=== PATIENT | male | born 1965 | race Caucasian/White ===

== ENCOUNTER 2020-09-23 10:46 | Day surgery (SDC) | payer OTHER ==
[2020-09-15 14:03] LABS: BASOPHILS # (AUTO) 0.1 X10'3 (0-0.2); BASOPHILS % (AUTO) 1.1 % (0-1); EOSINOPHILS # (AUTO) 0.1 X10'3 (0-0.9); EOSINOPHILS % (AUTO) 1.2 % (0-6); LYMPHOCYTES # (AUTO) 2.2 X10'3 (1.1-4.8); LYMPHOCYTES % (AUTO) 33.8 % (21-51); MEAN CORPUSCULAR HEMOGLOBIN 30.6 PG (27.0-31.0); MEAN CORPUSCULAR HGB CONC 34.3 g/dL (33.0-36.5); MEAN CORPUSCULAR VOLUME 89.3 FL (78-98); MEAN PLATELET VOLUME 7.9 FL (7.4-10.4); MONOCYTES # (AUTO) 0.7 X10'3 (0-0.9); MONOCYTES % (AUTO) 10.4 % (2-12); NEUTROPHILS # (AUTO) 3.5 X10'3 (1.8-7.7); NEUTROPHILS % (AUTO) 53.5 % (42-75); PRE OP HEMATOCRIT 46.9 % (42.0-52.0); PRE OP HEMOGLOBIN 16.1 g/dL (14.0-17.9); PRE OP PLATELET COUNT 317 X10'3 (140-440); RED BLOOD COUNT 5.26 X10'6 (4.70-6.10)
[2020-09-15 15:27] LABS: ALBUMIN 3.9 G/DL (3.4-5.0); ALBUMIN/GLOBULIN RATIO 1.1 (1.1-1.5); ALKALINE PHOSPHATASE 112 IU/L (46-116); BLOOD UREA NITROGEN 15 MG/DL (7-18); CALCIUM 9.1 MG/DL (8.5-10.1); CHLORIDE 106 MMOL/L (99-107); CREATININE 1.07 MG/DL (0.60-1.10); PRE OP ALT 55 U/L (30-65); PRE OP ANION GAP 10 (8-16); PRE OP AST 20 U/L (10-37); PRE OP BILIRUB, TOTAL 0.8 MG/DL (0.0-1.0); PRE OP GLUCOSE 95 MG/DL (70-104); PRE OP POTASSIUM 3.7 MMOL/L (3.4-5.1); PRE OP SODIUM 143 MMOL/L (135-145); TOTAL CARBON DIOXIDE 27.2 MMOL/L (24-32); TOTAL PROTEIN 7.5 G/DL (6.4-8.2); eGFR 72 ML/MIN
[~2020-09-23] VITALS: Ht 175.3 cm; Wt 101.5 kg
[2020-09-23] VITALS (9 sets, daily range): BP systolic 126–147; BP diastolic 83–93
[~2020-09-23 10:46] MED LIST: NO HOME MEDS; cefazolin/dext.iso 2gm/100ml IV ONE; famotidine 20mg tablet PO ONE; ringers solution, lacted 1,000 ML IV SCH; vancomycin 1,500 MG in NS 300ml IV soln IV ONE
[2020-09-23] MEDS ORDERED: BUPIVAcaine/PF 2.5 mg/ml (0.25%) 30ml vial ONE (13:06)
[2020-09-23] MEDS ORDERED: triamcinolone acetonide 40mg/ml inj ONE (13:06)
[2020-09-23] MEDS ORDERED: midazolam 1 mg/ML 2ml injection ONE (13:54)
[2020-09-23] MEDS ORDERED: fentaNYL/PF 50MCG/1 ML 2ML syringe ONE (13:54)
[2020-09-23] MEDS ORDERED: sevoflurane 250ml liquid IH ONE (13:55)
[2020-09-23] MEDS ORDERED: LIDOcaine 2% (20mg/ml) 5ml vial ONE (14:07)
[2020-09-23] MEDS ORDERED: ondansetron/PF 4mg/2ml inj ONE (14:07)
[2020-09-23] MEDS ORDERED: propofol inj 20 ML IV ONE (14:07)
[2020-09-23] MEDS ORDERED: dexamethasone sod phosphate 4mg/ml inj. ONE (14:07)
--- NOTE | 2020-09-23 14:59 | NUR ---
Received from OR via [facility] IN STABLE CONDITION , accompanied by Anesthesiologist and EDUCATION GENERAL MANAGER report given by Ignacio. Addendum: 09/23/20 at 1525 by Risa Cornejo RN Amended: Links added.
[2020-09-23] MEDS ORDERED: ondansetron/PF 4mg/2ml inj IV PRN (15:10)
[2020-09-23] MEDS ORDERED: labetalol 20mg/4ml (5mg/ml) syringe IV PRN (15:10)
[2020-09-23] MEDS ORDERED: acetaminophen 1,000mg/100ml IV 100 ML IV PRN (15:10)
[2020-09-23] MEDS ORDERED: hydrALAZINE 20mg/ml inj. IV PRN (15:10)
[2020-09-23] MEDS ORDERED: ketorolac trometh. 30mg/ml inj. IV ONE (15:10)
[2020-09-23] MEDS ORDERED: morphine 2 MG/ML inj. syringe IV PRN (15:10)
[2020-09-23] MEDS ORDERED: morphine 4 MG/ML inj SYRINge IV PRN (15:10)
[2020-09-23] MEDS ORDERED: ringers solution, lacted 1,000 ML IV SCH (15:10)
[2020-09-23] MEDS ORDERED: proCHLORperazine 10 MG/2 ml inj IV PRN (15:10)
[2020-09-23] MEDS ORDERED: meperidine/PF 25mg/ml syringe IV PRN ×3 (15:10)
--- NOTE | 2020-09-23 16:19 | NUR ---
PATIENT DISCHARGED FROM PACU AFTER WRITTEN AND VERBAL DISCHARGE INSTRUCTIONS GIVEN. PATIENT GAVE VERBAL UNDERSTANDING OF INSTRUCTIONS GIVEN. PATIENT LEFT FACILITY VIA WHEELCHAIR WITH RN. Addendum: 09/23/20 at 1624 by Risa Cornejo RN Amended: Links added.
== END 2020-09-23 16:19 | disposition home or self-care (01) ==
LOC: PAS 10:46
PROVIDERS: ATTEND Orthopaedic Surgery
DX: S83.231A Complex tear of medial meniscus, current injury, right knee, initial encounter (principal); S83.271A Complex tear of lateral meniscus, current injury, right knee, initial encounter; M94.261 Chondromalacia, right knee; M17.0 Bilateral primary osteoarthritis of knee; I10 Essential (primary) hypertension; M19.071 Primary osteoarthritis, right ankle and foot; E66.8 Other obesity; Z68.33 Body mass index [BMI] 33.0-33.9, adult; Z98.890 Other specified postprocedural states; Z79.899 Other long term (current) drug therapy; X58.XXXA Exposure to other specified factors, initial encounter; Y93.89 Activity, other specified; Y92.89 Other specified places as the place of occurrence of the external cause; Y99.8 Other external cause status
CPT/HCPCS: 29873; 29879; 29880; 36415; 80053; 82948; 85025; 93005; J0131; J1100; J1885; J2001; J2250; J2405; J2704; J3010; J3301; J3370; J3490; J7040; A4215; A4618; A6250; A6449; A7000; J7120